=== PATIENT | female | born 1995 | race American Indian/Alaskan Native ===

== ENCOUNTER 2022-06-08 04:51 | Emergency (ER) | payer BC ==
[2022-06-08] MEDS ORDERED: diphenhydrAMINE 25 MG CAP PO ONE (07:21)
[2022-06-08] MEDS ORDERED: METOCLOPRAMIDE 10 MG TAB PO ONE (07:21)
[2022-06-08] MEDS ORDERED: ACETAMINOPHEN 500 MG TAB PO ONE (07:21)
[2022-06-08] MEDS ORDERED: predniSONE 20 MG TAB PO ONE (07:21)
--- NOTE | 2022-06-08 07:34 | Emergency Department Report ---
ED Headache HPI - General Chief Complaint: Headache Stated Complaint: HEADACHE/DIZZINESS Time Seen by Provider: 06/08/22 07:18 - History of Present Illness Initial Comments: Is a 26-year-old female who presents for cluster headaches for the past 2 weeks. Patient has history of similar migraine headaches same location intensity and duration in the past. There have been no fevers no chills no nausea no vomiting. No vertigo. Patient states intermittent mild photophobia however no decrease in vision. No nausea or vomiting. Headaches are relieved by ibuprofen. Patient is out of ibuprofen at this time. Patient arrived to ED via POV. Patient is alert oriented x3 ambulatory with steady gait in no acute distress. Allergies/Adverse Reactions: Allergies Penicillins Allergy (Verified 06/08/22 05:00) Unknown Home Medications: Ambulatory Orders Butalb/Acetamin/Caff 50-325-40 [Fioricet 50-325-40] 1 tab PO Q6HR PRN #12 tab 06/08/22 ED Review of Systems ROS: Stated complaint: HEADACHE/DIZZINESS Other details as noted in HPI Constitutional: denies: chills, fever Eyes: denies: eye pain, eye discharge, vision change ENT: denies: ear pain, throat pain Respiratory: denies: cough, shortness of breath, wheezing Cardiovascular: denies: chest pain, palpitations Endocrine: no symptoms reported Gastrointestinal: denies: abdominal pain, nausea, vomiting, diarrhea Genitourinary: denies: urgency, dysuria, discharge Musculoskeletal: denies: back pain, joint swelling, arthralgia Skin: denies: rash, lesions Neurological: headache. denies: weakness, numbness, paresthesias, confusion, vertigo Psychiatric: denies: anxiety, depression Hematological/Lymphatic: denies: easy bleeding, easy bruising ED Past Medical Hx - Past Medical History Previous Medical History?: Yes Hx Asthma: Yes Additional medical history: Migraine headaches - Surgical History Past Surgical History?: No - Medications Home Medications: Home Medications Medication Instructions Recorded Confirmed Last Taken Type Butalb/Acetamin/Caff 50-325-40 1 tab PO Q6HR PRN #12 tab 06/08/22 Unknown Rx [Fioricet 50-325-40] ED Physical Exam - General Limitations: No Limitations General appearance: alert, in no apparent distress - Head Head exam: Present: normocephalic, normal inspection - Eye Eye exam: Present: PERRL, EOMI Pupils: Present: normal accommodation - ENT ENT exam: Present: normal orophraynx, mucous membranes moist, TM's normal bilaterally - Neck Neck exam: Present: normal inspection, full ROM. Absent: tenderness (No posterior vertebral point tenderness range of motion intact unrestricted to all quadrants.), meningismus, lymphadenopathy - Respiratory Respiratory exam: Present: normal lung sounds bilaterally. Absent: respiratory distress, wheezes - Cardiovascular Cardiovascular Exam: Present: regular rate, normal rhythm, normal heart sounds. Absent: systolic murmur, diastolic murmur, rubs, gallop - GI/Abdominal GI/Abdominal exam: Present: soft, normal bowel sounds - Rectal Rectal exam: Present: deferred - Extremities Exam Extremities exam: Present: normal inspection, full ROM, normal capillary refill. Absent: tenderness - Back Exam Back exam: Present: normal inspection, full ROM. Absent: CVA tenderness (R), CVA tenderness (L) - Neurological Exam Neurological exam: Present: alert, oriented X3, CN II-XII intact, normal gait, reflexes normal. Absent: motor sensory deficit - Expanded Neurological Exam Expanded Patient oriented to: Present: person, place, time Speech: Present: fluid speech Cranial nerves: EOM's Intact: Normal, Nystagmus: Normal, Facial Sensation: Normal Motor strength exam: RUE: 5, LUE: 5, RLE: 5, LLE: 5 Best Eye Response (Anu): (4) open spontaneously Best Motor Response ([place]): (6) obeys commands Best Verbal Response (Anu): (5) oriented [place] Total: 15 - Psychiatric Psychiatric exam: Present: normal affect, normal mood - Skin Skin exam: Present: warm, dry, intact, normal color. Absent: rash ED Course Vital Signs 06/08/22 05:00 Temperature 98.1 F Pulse Rate 73 Respiratory 16 Rate Blood Pressure 131/78 O2 Sat by Pulse 100 Oximetry ED Medical Decision Making - Medical Decision Making Exam consistent with cluster headache. Headaches are relieved by ibuprofen plan DC to home with prescriptions, follow-up with primary care in 2 to 3 days. Return to emergency department for symptoms worsen. Patient is currently alert oriented x3 tolerating p.o. intake ambulatory with steady gait with no acute distress. Critical care attestation.: If time is entered above; I have spent that time in minutes in the direct care of this critically ill patient, excluding procedure time. ED Disposition Clinical Impression: Cluster headache Qualifiers: Headache chronicity pattern: episodic headache Intractability: not intractable Qualified Code(s): G44.019 - Episodic cluster headache, not intractable Disposition: 01 HOME / SELF CARE / HOMELESS Is pt being admited?: No Does the pt Need Aspirin: No Condition: Stable Instructions: Cluster Headache Additional Instructions: Take medications as prescribed, follow-up with your doctor in 2 to 3 days. Return to emergency department for symptoms worsen. Prescriptions: Butalb/Acetamin/Caff 50-325-40 [Fioricet 50-325-40] 1 tab PO Q6HR PRN #12 tab PRN Reason: Headache Referrals: MEG MCMULLEN MD [Referring] - 3-5 Days RICK NUNEZ MD [Staff Physician] - 3-5 Days Forms: Work/School Release Form(ED) Time of Disposition: 07:36
[2022-06-08 08:24] VITALS: BP 129/82
== END 2022-06-08 07:36 | disposition home or self-care (01) ==
LOC: ED 04:51
DX: G44.009 Cluster headache syndrome, unspecified, not intractable (principal); J45.909 Unspecified asthma, uncomplicated; Z98.890 Other specified postprocedural states; Z79.899 Other long term (current) drug therapy; Z88.0 Allergy status to penicillin
CPT/HCPCS: 99282

== ENCOUNTER 2022-06-15 19:40 | Emergency (ER) | payer BC ==
[2022-06-16 03:10] VITALS: BP 111/78
--- NOTE | 2022-06-16 04:06 | Emergency Department Report ---
ED General Adult HPI - General Chief complaint: Headache Stated complaint: LEFT EARACHE/LEFT EYE SWELLING Time Seen by Provider: 06/16/22 03:23 Source: patient Mode of arrival: Ambulatory Limitations: No Limitations - History of Present Illness Initial comments: 26 Y F with no PMH reports to ER with [facility] for 2 weeks intermitted with left ear pressure and left eyes swelling. No V/N or dizziness reported. No other acute symptoms reported. Severity scale (0 -10): 0 - Related Data Previous Rx's Medication Instructions Recorded Last Taken Type Butalb/Acetamin/Caff 50-325-40 1 tab PO Q6HR PRN #12 tab 06/08/22 Unknown Rx [Fioricet 50-325-40] Mupirocin [Bactroban 2% OINT] 1 applic TP BID #1 tube 06/08/22 Unknown Rx Acetaminophen/Codeine [Tylenol 1 tab PO Q6H PRN 2 Days #8 tab 06/16/22 Unknown Rx /Codeine # 3 tab] Allergies Allergy/AdvReac Type Severity Reaction Status Date / Time Penicillins Allergy Unknown Verified 06/08/22 05:00 ED Review of Systems ROS: Stated complaint: LEFT EARACHE/LEFT EYE SWELLING Other details as noted in HPI Comment: All other systems reviewed and negative Eyes: other (Left eyelid swelling). denies: vision change ENT: ear pain Respiratory: denies: shortness of breath Cardiovascular: denies: chest pain Neurological: headache ED Past Medical Hx - Past Medical History Previous Medical History?: No Hx Asthma: Yes Additional medical history: Migraine headaches - Social History Smoking Status: Never Smoker Substance Use Type: None - Medications Home Medications: Home Medications Medication Instructions Recorded Confirmed Last Taken Type Butalb/Acetamin/Caff 50-325-40 1 tab PO Q6HR PRN #12 tab 06/08/22 Unknown Rx [Fioricet 50-325-40] Mupirocin [Bactroban 2% OINT] 1 applic TP BID #1 tube 06/08/22 Unknown Rx Acetaminophen/Codeine [Tylenol 1 tab PO Q6H PRN 2 Days #8 tab 06/16/22 Unknown Rx /Codeine # 3 tab] ED Physical Exam - General Limitations: No Limitations General appearance: alert, in no apparent distress - Head Head exam: Present: atraumatic, normocephalic - Eye Eye exam: Present: normal appearance, PERRL, EOMI, other (No left eye swelling noted. Patient does have bags under her left eye.). Absent: conjunctival injection Pupils: Present: normal accommodation - ENT ENT exam: Present: mucous membranes moist, other (Left ear with no acute process noted. TM intact. No erythema or bulging noted. No canal redness or tenderness noted.) - Neck Neck exam: Present: normal inspection - Respiratory Respiratory exam: Present: normal lung sounds bilaterally. Absent: respiratory distress - Cardiovascular Cardiovascular Exam: Present: regular rate, normal rhythm. Absent: systolic m urmur, diastolic murmur, rubs, gallop - GI/Abdominal GI/Abdominal exam: Present: soft, normal bowel sounds - Extremities Exam Extremities exam: Present: normal inspection - Back Exam Back exam: Present: normal inspection - Neurological Exam Neurological exam: Present: alert, oriented X3 - Expanded Neurological Exam Expanded Motor strength exam: RUE: 5, LUE: 5, RLE: 5, LLE: 5 Best Eye Response ([place]): (4) open spontaneously Best Motor Response ([place]): (6) obeys commands Best Verbal Response (Anu): (5) oriented Anu Total: 15 - Psychiatric Psychiatric exam: Present: normal affect, normal mood - Skin Skin exam: Present: warm, dry, intact, normal color. Absent: rash ED Course Vital Signs 06/15/22 06/16/22 21:28 03:10 Temperature 97.8 F Pulse Rate 70 66 Respiratory 20 16 Rate Blood Pressure 138/93 Blood Pressure 111/78 [Left] O2 Sat by Pulse 100 96 Oximetry ED Medical Decision Making - Radiology Data Radiology results: report reviewed [address] [address] Cat Scan Report Signed with Julian Patient: JAYNA ROJAS MR#: [id number] : 1995 Acct:[id number] Age/Sex: 26 / F ADM Date: 06/15/22 Loc: ED Attending Dr: Ordering Physician: MARCIA ORNELAS NP Date of Service: 06/16/22 Procedure(s): CT head/brain wo con Accession Number(s): [id number] cc: MARCIA ORNELAS NP ADDENDUM . Signer Name: Mee Bright II, MD Signed: 06/16/2022 4:55 AM Workstation Name: [id number] Addendum Transcribed By: AG Addendum Dictated By: MEE BRIGHT II, MD Addendum Electronically Authenticated By: MEE BRIGHT II, MD Addendum Signed Date/Time: 06/16/22454 DD/ /27/455 TD/TT: / CT HEAD WITHOUT CONTRAST INDICATION / CLINICAL INFORMATION: headache. TECHNIQUE: CT head was performed without administration of intravenous contrast. All CT scans at this location are performed using CT dose reduction for ALARA by means of automated exposure control. COMPARISON: None available. FINDINGS: CEREBRAL HEMISPHERES: There is no evidence of large territorial infarction or significant abnormality of anna-white matter differentiation. Ventricles within normal limits. No midline shift. Basal cisterns patent. HEMORRHAGE: None. CEREBELLUM / BRAINSTEM: No significant abnormality. ORBITS: No significant abnormality. SOFT TISSUES: No significant abnormality. SKULL: No significant abnormality. PARANASAL SINUSES / MASTOID AIR CELLS: Normal as visualized. ADDITIONAL FINDINGS: None. IMPRESSION: 1. No acute intracranial abnormality. Signer Name: Mee Bright II, MD Signed: 06/16/2022 4:47 AM Workstation Name: [id number] Transcribed By: AG Dictated By: MEE BRIGHT II, MD Electronically Authenticated By: MEE BRIGHT II, MD Signed Date/Time: 06/16/22446 DD/ 5 TD/TT: -- [Addendum Report Added by MEE BRIGHT at 2022-06-16 05:01:02] [facility] [address] [place] [address] Cat Scan Report Signed Patient: JAYNA ROJAS MR#: [id number] : 1995 Acct:[id number] Age/Sex: 26 / F ADM Date: 06/15/22 Loc: ED Attending Dr: Ordering Physician: MARCIA ORNELAS NP Date of Service: 06/16/22 Procedure(s): CT head/brain wo con Accession Number(s): [id number] cc: MARCIA ORNELAS NP CT HEAD WITHOUT CONTRAST INDICATION / CLINICAL INFORMATION: headache. TECHNIQUE: CT head was performed without administration of intravenous contrast. All CT scans at this location are performed using CT dose reduction for ALARA by means of automated exposure control. COMPARISON: None available. FINDINGS: CEREBRAL HEMISPHERES: There is no evidence of large territorial infarction or significant abnormality of anna-white matter differentiation. Ventricles within normal limits. No midline shift. Basal cisterns patent. HEMORRHAGE: None. CEREBELLUM / BRAINSTEM: No significant abnormality. ORBITS: No significant abnormality. SOFT TISSUES: No significant abnormality. SKULL: No significant abnormality. PARANASAL SINUSES / MASTOID AIR CELLS: Normal as visualized. ADDITIONAL FINDINGS: None. IMPRESSION: 1. No acute intracranial abnormality. Signer Name: Mee Bright II, MD Signed: 06/16/2022 4:47 AM Workstation Name: [id number] Transcribed By: AG Dictated By: MEE BRIGHT II, MD Electronically Authenticated By: MEE BRIGHT II, MD Signed Date/Time: 06/16/22446 DD/ 5 TD/TT: - Medical Decision Making 26-year-old female no significant past medical history reports to the ER with complaints of intermittent headache for about 2 weeks. Patient reports Motrin and the prior medication she was prescribed when seen in the ED is not helping her headaches. Patient reports at times she has elevated blood pressure but does not have a history of hypertension. Patient reports no weakness no numbness no tingling no slurred speech On physical exam patient has no acute clinical findings. Patient is neurologically intact. No weakness. Left eye has backed up under her left eye due to lack of sleep. Left ear with no acute process noted. No infectious noted. CT of head is negative. Patient informed of CT results. Patient informed to follow her primary care provider for further evaluation of her elevated blood pressure and headaches. Patient informed headaches are likely due to stress as she works 3 jobs. As well as high intake of salt as patient reports she eats a lot fast food. Patient agrees with plan of care and verbalized understanding. No further work-up is needed time. Vital Signs 06/15/22 06/16/22 21:28 03:10 Temperature 97.8 F Pulse Rate 70 66 Respiratory 20 16 Rate Blood Pressure 138/93 Blood Pressure 111/78 [Left] O2 Sat by Pulse 100 96 Oximetry Critical care attestation.: If time is entered above; I have spent that time in minutes in the direct care of this critically ill patient, excluding procedure time. ED Disposition Clinical Impression: Headache Qualifiers: Headache type: other headache syndrome Qualified Code(s): G44.89 - Other headache syndrome Disposition: 01 HOME / SELF CARE / HOMELESS Is pt being admited?: No Condition: Stable Instructions: General Headache Without Cause, Preventing Hypertension Prescriptions: Acetaminophen/Codeine [Tylenol /Codeine # 3 tab] 1 tab PO Q6H PRN 2 Days #8 tab PRN Reason: Pain , Severe (7-10) Referrals: RICK NUNEZ MD [Primary Care Provider] - 3-5 Days [facility] [Outside] - 3-5 Days [facility] [Outside] - 3-5 Days [facility] [Outside] - 3-5 Days [facility] [Outside] - 3-5 Days
--- NOTE | 2022-06-16 04:52 | Cat Scan Report ---
CT HEAD WITHOUT CONTRAST INDICATION / CLINICAL INFORMATION: headache. TECHNIQUE: CT head was performed without administration of intravenous contrast. All CT scans at this location are performed using CT dose reduction for ALARA by means of automated exposure control. COMPARISON: None available. FINDINGS: CEREBRAL HEMISPHERES: There is no evidence of large territorial infarction or significant abnormality of anna-white matter differentiation. Ventricles within normal limits. No midline shift. Basal ciste rns patent. HEMORRHAGE: None. CEREBELLUM / BRAINSTEM: No significant abnormality. ORBITS: No significant abnormality. SOFT TISSUES: No significant abnormality. SKULL: No significant abnormality. PARANASAL SINUSES / MASTOID AIR CELLS: Normal as visualized. ADDITIONAL FINDINGS: None. IMPRESSION: 1. No acute intracranial abnormality. Signer Name: Mendez Walsh II, MD Signed: 06/16/2022 4:47 AM Workstation Name: [id number]
== END 2022-06-16 06:45 | disposition home or self-care (01) ==
LOC: ED 19:40
DX: R51.9 Headache, unspecified (principal); J45.909 Unspecified asthma, uncomplicated; Z88.0 Allergy status to penicillin
CPT/HCPCS: 70450; 99282; 99283